=== PATIENT | female | born 1980 | race Caucasian/White ===

== ENCOUNTER 2018-01-18 20:58 | Emergency (ER) | payer MEDICAID ==
[~2018-01-18] VITALS: Ht 180.3 cm; Wt 91.0 kg
[2018-01-18] MEDS ORDERED: NO HOME MEDS (21:09)
[2018-01-18] MEDS ORDERED: cephalexin 250mg capsule PO ONE (21:40)
[2018-01-18] MEDS ORDERED: ibuprofen tablet 400 MG TABLET PO ONE (21:40)
[2018-01-18] MEDS ORDERED: sulfamethoxazole/trimethoprim DS (800/160mg) tablet PO ONE (21:40)
[2018-01-18] MEDS ORDERED: BACDS PO (21:54)
[2018-01-18] MEDS ORDERED: HYDR-3965 PO (21:54)
[2018-01-18] MEDS ORDERED: IBUP-1984 PO (21:54)
[2018-01-18] MEDS ORDERED: CEPH500C5 PO (21:54)
[2018-01-18 22:29] VITALS: BP 140/85
== END 2018-01-18 22:30 | disposition home or self-care (01) ==
LOC: ER 20:58
DX: L03.113 Cellulitis of right upper limb (principal); F17.200 Nicotine dependence, unspecified, uncomplicated; Z79.899 Other long term (current) drug therapy
CPT/HCPCS: 29125; 99284; A4565

== ENCOUNTER 2024-11-23 14:11 | Emergency (ER) | payer MEDICAID ==
[~2024-11-23 14:11] MED LIST: NO HOME MEDS
== END 2024-11-23 17:00 | disposition left against medical advice (07) ==
LOC: ER 14:11
DX: J11.1 Influenza due to unidentified influenza virus with other respiratory manifestations (principal); Z53.21 Procedure and treatment not carried out due to patient leaving prior to being seen by health care provider